=== PATIENT | female | born 1995 | race Caucasian/White ===

== ENCOUNTER 2017-04-30 11:07 | Emergency (ER) | payer OTHER ==
[~2017-04-30] VITALS: Ht 160 cm; Wt 78.6 kg
[2017-04-30 11:52] LABS: HEMATOCRIT 38.9 % (36.0-46.0); MCH 29.4 PG (29.0-34.0); MCHC 34.2 G/DL (30.0-36.0); MCV 85.9 FL (83-99); RBC DIS.WIDTH-CV 14.9 % (11.8-14.6); RBC DIS.WIDTH-SD 47.4 % (39-53); RED BLOOD COUNT 4.53 M/uL (3.80-5.20); WHITE BLOOD COUNT 4.6 K/uL (4.1-10.2)
[2017-04-30 12:04] LABS: CHLORIDE 108 mEq/L (99-109)
[2017-04-30 12:05] LABS: POTASSIUM 3.4 mEq/L (3.7-5.4); SODIUM 140 mEq/L (136-147)
[2017-04-30 12:07] LABS: GLUCOSE 108 mg/dL (70-99)
[2017-04-30 12:08] LABS: ANION GAP 11 MEQ/L (2-14)
[2017-04-30 12:09] LABS: ADD MIUA? YES; BILIRUBIN NEGATIVE; BLOOD LARGE; COLOR AMBER ((YELLOW)); GLUCOSE (STRIP) NEGATIVE; KETONES 20; LEUKOCYTES MODERATE; NITRITE NEGATIVE; PROTEIN (STRIP) 100; SPECIFIC GRAVITY 1.025 (1.000-1.030); UROBILINOGEN 0.2 MG/DL (0.2-1.0)
[2017-04-30 12:09] LABS: TOTAL BILIRUBIN 0.7 mg/dL (0.0-1.0)
[2017-04-30 12:10] LABS: ALKALINE PHOSPHATASE 79 IU/L (3-129); GFR ESTIMATE (CALCULATED) > 59 mL/min/
[2017-04-30 12:12] LABS: UREA NITROGEN (BUN) 9 mg/dL (9-23)
[2017-04-30 12:15] LABS: BACTERIA 2+ /HPF; CALCIUM OXALATE CRYSTALS 2+ /HPF; EPITHELIAL CELLS 4+ /HPF; MUCUS 1+ /LPF; UCUL ADDED? YES
[2017-04-30 12:19] LABS: QUANTITATIVE HCG < 4.0 MIU/ML
[2017-04-30 12:34] LABS: PLAT.SUFFICIENCY ADEQUATE; PLATELET COUNT 245 K/uL (156-360)
[2017-04-30] MEDS ORDERED: KEFLEX500 MG PO (13:03)
[2017-04-30] MEDS ORDERED: PYRIDIUM200 MG PO (13:03)
[2017-04-30 13:36] VITALS: BP 132/74
== END 2017-04-30 13:36 | disposition home or self-care (01) ==
LOC: EME 11:07
PROVIDERS: Physician Assistant Medical
DX: N39.0 Urinary tract infection, site not specified (principal); R10.31 Right lower quadrant pain; R19.7 Diarrhea, unspecified
CPT/HCPCS: 74177; 80053; 81003; 84702; 85027; 87086; 99281; 99285; J1885; J2405; J7030

== ENCOUNTER 2017-06-08 02:23 | Emergency (ER) | payer OTHER ==
[~2017-06-08] VITALS: Ht 160 cm; Wt 78.2 kg
[~2017-06-08 02:23] MED LIST: KEFLEX500 MG PO; PYRIDIUM200 MG PO
[2017-06-08] MEDS ORDERED: KLONOPIN0.5 M1 PO (04:42)
[2017-06-08 04:54] VITALS: BP 124/68
== END 2017-06-08 04:50 | disposition home or self-care (01) ==
LOC: EME → EDBD 02:23 → EME 04:50
DX: F41.9 Anxiety disorder, unspecified (principal)
CPT/HCPCS: 93005; 99281; 99284; J2060; J7030

== ENCOUNTER 2017-11-19 19:37 | Emergency (ER) | payer OTHER ==
[~2017-11-19] VITALS: Ht 160 cm; Wt 80.1 kg
[~2017-11-19 19:37] MED LIST changes: +KLONOPIN0.5 M1 PO
[2017-11-19] MEDS ORDERED: PEN-VEE K,VEET500 MG PO (20:26)
[2017-11-19] MEDS ORDERED: PERCOCET 5/31 TABLET PO (20:27)
[2017-11-19 20:32] VITALS: BP 114/74
== END 2017-11-19 20:34 | disposition home or self-care (01) ==
LOC: EME 19:37
DX: K08.89 Other specified disorders of teeth and supporting structures (principal); Z88.8 Allergy status to other drugs, medicaments and biological substances
CPT/HCPCS: 99281; 99283